=== PATIENT | female | born 1995 | race African-American/Black ===

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

== ENCOUNTER 2017-12-17 22:55 | Emergency (ER) | payer BC ==
[~2017-12-17] VITALS: Ht 152.4 cm; Wt 66.0 kg
[2017-12-18] MEDS ORDERED: METHOCARBAMOL 500MG TABLET PO ONE
[2017-12-18] MEDS ORDERED: IBUPROFEN 600MG TABLET PO ONE
[2017-12-18] MEDS ORDERED: KETOROLAC 60MG/2ML VIAL IM ONE (00:15)
[2017-12-18 01:34] LABS: CHLORIDE 107 mEq/L (98-107)
[2017-12-18 01:35] LABS: BASOPHILS % 0.5 % (0.0-2.0); EOSINOPHILS % 8.2 % (0.0-5.0); HEMATOCRIT. 33.6 % (36.0-48.0); HEMOGLOBIN. 11.4 g/dL (12.0-16.0); LYMPHOCYTES % 24.3 % (20.0-50.0); MEAN CORPUSCULAR HEMOGLOBIN 31.7 pg (28.0-32.0); MEAN CORPUSCULAR VOLUME 93.6 fL (81.0-99.0); MEAN PLATELET VOLUME 9.1 fl (7.4-10.4); MONOCYTES % 5.7 % (2.0-8.0); NEUTROPHILS % 61.3 % (40.0-76.0); PLATELET 274 x1000/uL (130-400); RED BLOOD CELL COUNT 3.59 mill/uL (4.2-5.4); RED CELL DISTRIBUTION WIDTH 12.9 % (11.6-14.6)
[2017-12-18 01:36] LABS: CLARITY URINE CLOUDY (CLEAR); COLOR URINE YELLOW (YELLOW); KETONES URINE NEGATIVE (NEGATIVE); LEUKOCYTE ESTERASE URINE 2+ (NEGATIVE); NITRITE URINE POSITIVE (NEGATIVE); OCCULT BLOOD URINE NEGATIVE (NEGATIVE); PH URINE 6.5 (4.5-8.0); PROTEIN URINE NEGATIVE (NEGATIVE); SPECIFIC GRAVITY URINE 1.014 (1.005-1.030); UROBILINOGEN URINE 0.2 E.U./dL (0.2-1.0)
[2017-12-18] MEDS ORDERED: POTASSIUM CHLORIDE 20MEQ TABLET SR PO ONE (02:00)
[2017-12-18 03:10] VITALS: BP 125/68
[2017-12-18] MEDS ORDERED: NITROFURANTOIN 100MG M/M CAPSULE PO ONE (03:15)
[2017-12-23 08:19] LABS: CHLAMYDIA TRACHOMATIS NAA Positive (Negative); NEISSERIA GONORRHOEAE NAA Negative (Negative)
== END 2017-12-18 03:47 | disposition home or self-care (01) ==
LOC: ER 22:55
DX: R30.0 Dysuria (principal); S20.211A Contusion of right front wall of thorax, initial encounter; W10.9XXA Fall (on) (from) unspecified stairs and steps, initial encounter; Y93.89 Activity, other specified; Y92.89 Other specified places as the place of occurrence of the external cause; N39.0 Urinary tract infection, site not specified; R03.0 Elevated blood-pressure reading, without diagnosis of hypertension
CPT/HCPCS: 36415; 71101; 80053; 81003; 81025; 83690; 85025; 87077; 87086; 87186; 87210; 87491; 87591; 96372; 99285; J1885

== ENCOUNTER 2020-11-20 18:03 | Emergency (ER) | payer SELFPAY ==
[~2020-11-20] VITALS: Ht 157.5 cm; Wt 69.0 kg
[2020-11-20 18:06] VITALS: BP 123/88
== END 2020-11-20 22:12 | disposition left against medical advice (07) ==
LOC: ER 18:03
DX: Z53.21 Procedure and treatment not carried out due to patient leaving prior to being seen by health care provider (principal)